=== PATIENT | female | born 1970 | race Caucasian/White ===

== ENCOUNTER 2019-12-06 08:28 | Emergency (ER) | payer OTHER ==
[~2019-12-06] VITALS: Ht 162.6 cm; Wt 69.8 kg
[~2019-12-06 08:28] MED LIST: ASPI81TA85 PO
[2019-12-06 08:29] VITALS: BP 163/78
[2019-12-06] MEDS ORDERED: BENA25CA4 PO (08:35)
[2019-12-06] MEDS ORDERED: PRED20TA PO (09:05)
[2019-12-06] MEDS ORDERED: predniSONE 20 MG TAB PO ONE (09:15)
== END 2019-12-06 09:22 | disposition home or self-care (01) ==
LOC: M ED 08:28
DX: L23.7 Allergic contact dermatitis due to plants, except food (principal)

== ENCOUNTER 2021-11-30 13:35 | Emergency (ER) | payer OTHER ==
[~2021-11-30] VITALS: Ht 160 cm; Wt 71.6 kg
[2021-11-30 13:35] VITALS: BP 152/90
[~2021-11-30 13:35] MED LIST changes: -ASPI81TA85 PO; +ASPI81TA86 PO; +BENA25CA4 PO; +PRED20TA PO
== END 2021-11-30 16:56 | disposition left against medical advice (07) ==
LOC: M ED 13:35
DX: Z53.21 Procedure and treatment not carried out due to patient leaving prior to being seen by health care provider (principal)

== ENCOUNTER → 2023-07-14 | Outpatient (CLI) | payer OTHER | LOC: M EKG 13:33 | PROVIDERS: ATTEND Anesthesiology | DX: Z01.818 Encounter for other preprocedural examination (principal) ==

== ENCOUNTER 2023-07-20 06:10 | Day surgery (SDC) | payer OTHER ==
[~2023-07-20] VITALS: Ht 162.6 cm; Wt 70.7 kg
[2023-07-20] MEDS ORDERED: LR 1,000 ML IV SCH ×2 (06:25→09:40)
[2023-07-20 06:46] LABS: HEMATOCRIT 41.3 % (36.0-47.0); HEMOGLOBIN 13.9 g/dl (12.0-15.5); MEAN CORPUSCULAR HGB CONC 33.7 g/dl (32.0-36.5); MEAN CORPUSCULAR VOLUME 83.3 fl (80.0-96.0); PLATELET COUNT, AUTOMATED 251 10^3/uL (150-450); RED BLOOD COUNT 4.96 10^6/uL (4.00-5.40); WHITE BLOOD COUNT 6.5 10^3/uL (4.0-10.0)
[2023-07-20] MEDS ORDERED: ONDANSETRON 4MG 2ML VIAL As Ordered ONE (07:13)
[2023-07-20] MEDS ORDERED: KETOROLAC 60MG 2ML VIAL As Ordered ONE (07:13)
[2023-07-20] MEDS ORDERED: ACETAMINOPHEN 1000MG 100ML IV BAG As Ordered ONE (07:13)
[2023-07-20] MEDS ORDERED: propofoL 200 MG/20 ML VIAL As Ordered ONE (07:13)
[2023-07-20] MEDS ORDERED: FLUORESCEIN 10% (100MG/ML) 5ML VIAL As Ordered ONE (07:14)
[2023-07-20] MEDS ORDERED: LIDOCAINE 2% 100MG/5ML SDV (FOR ANES.) As Ordered ONE (07:14)
[2023-07-20] MEDS ORDERED: MIDAZOLAM INJ 2MG/2ML VIAL As Ordered ONE (07:14)
[2023-07-20] MEDS ORDERED: fentaNYL 100 MCG/2 ML INJECTION As Ordered ONE (07:14)
[2023-07-20] MEDS ORDERED: ROCURONIUM BROMIDE 50MG/5ML VIAL As Ordered ONE (07:14)
[2023-07-20 07:19] LABS: BLOOD UREA NITROGEN 12 MG/DL (9-23); CALCIUM LEVEL 8.7 MG/DL (8.5-10.1); CARBON DIOXIDE LEVEL 30 MMOL/L (20-31); CHLORIDE LEVEL 104 MMOL/L (98-107); GLOMERULAR FILTRATION RATE > 60.0 (>51); GLUCOSE, FASTING 96 MG/DL (60-100); POTASSIUM SERUM 4.1 MMOL/L (3.5-5.1); SODIUM LEVEL 140 MMOL/L (136-145)
[2023-07-20] MEDS ORDERED: SUGAMMADEX SODIUM 500 MG/5 ML VIAL (BRIDION) As Ordered ONE (07:19)
[2023-07-20] MEDS ORDERED: PERC5TAB12 PO (07:31)
[2023-07-20] MEDS: ceFAZolin SOD 2 GM in IV 1 EA IV ONE (07:43)
[2023-07-20] MEDS ORDERED: oxyCODONE 5MG TAB PO PRN (09:15)
[2023-07-20] MEDS ORDERED: fentaNYL 100 MCG/2 ML INJECTION IV PRN (09:15)
[2023-07-20] MEDS ORDERED: ONDANSETRON 4MG 2ML VIAL IV PRN (09:15)
[2023-07-20] MEDS: MEPERIDINE 25 MG/ML 1ML VIAL IV PRN (09:25)
[2023-07-20] MEDS ORDERED: PERCOCET 5MG/325MG TAB PO PRN (09:40)
[2023-07-20 09:51] VITALS: BP 126/68; TEMP 97.2; O2SAT 98
[2023-07-20] MEDS ORDERED: SIMETHICONE 80MG CHEW TAB PO SCH (12:00)
[2023-07-20] MEDS ORDERED: IBUPROFEN 800 MG TAB PO SCH (17:00)
== END 2023-07-20 10:25 | disposition home or self-care (01) ==
LOC: M SDC 06:10
PROVIDERS: ATTEND Obstetrics & Gynecology
DX: N95.0 Postmenopausal bleeding (principal); D25.1 Intramural leiomyoma of uterus; N84.1 Polyp of cervix uteri; Z86.73 Personal history of transient ischemic attack (TIA), and cerebral infarction without residual deficits; G47.30 Sleep apnea, unspecified
CPT/HCPCS: 36415; 58571; 80048; 81025; 85027; 86850; 86900; 86901; 88307; J0131; J0665; J0690; J1100; J1885; J2175; J2250; J2405; J3010; S2900

== ENCOUNTER 2024-02-29 00:12 | Emergency (ER) | payer OTHER ==
[~2024-02-29] VITALS: Ht 162.6 cm; Wt 72.6 kg
[~2024-02-29 00:12] MED LIST changes: +PERC5TAB12 PO
[2024-02-29 04:23] VITALS: BP 137/76; TEMP 99.2; O2SAT 97
== END 2024-02-29 06:12 | disposition left against medical advice (07) ==
LOC: M ED 00:12
DX: Z53.21 Procedure and treatment not carried out due to patient leaving prior to being seen by health care provider (principal)